=== PATIENT | female | born 1985 | race Caucasian/White ===

== ENCOUNTER 2017-04-25 17:41 | Emergency (ER) | payer MEDICAID, OTHER ==
[~2017-04-25] VITALS: Ht 162.6 cm; Wt 68.3 kg
[~2017-04-25 17:41] MED LIST: DIAZ10TA PO; DIVA500T4 PO; [UNRECOGNIZED DRUG - OTHER] PO; [UNRECOGNIZED DRUG - OTHER] PO
[2017-04-25] MEDS ORDERED: LEVE500T9 PO (18:39)
[2017-04-25] MEDS ORDERED: PREN-58 PO (18:39)
[2017-04-25] MEDS ORDERED: FOLI1TAB16 PO (18:39)
[2017-04-25] MEDS ORDERED: IV NORMAL SALINE 500 ML IV ONE (19:15)
--- NOTE | 2017-04-25 19:16 | NUR ---
Call placed to Dr. Shore (TORCH OPERATOR), message left for return call.
[2017-04-25 19:29] LABS: BASOPHILS % (AUTO) 0.3 % (0.0-2.0); EOSINOPHILS % (AUTO) 0.4 % (0.0-7.0); HEMOGLOBIN 14.6 g/dL (10.9-14.3); LYMPHOCYTES # (AUTO) 1.7 K/uL (20.0-40.0); MEAN CORPUSCULAR HEMOGLOBIN 31.8 uug (24.7-32.8); MEAN CORPUSCULAR HGB CONC 35 g/dL (32.3-35.6); MEAN CORPUSCULAR VOLUME 91.7 fL (75.5-95.3); MONOCYTES # (AUTO) 0.4 K/uL (2.0-10.0); MONOCYTES % (AUTO) 6.3 % (0.0-11.0); NEUTROPHILS # (AUTO) 4.6 K/uL (1.8-8.9); PLATELET COUNT (AUTO) 197 K/uL (179-408); RED BLOOD CELL COUNT(AUTO) 4.58 MIL/uL (3.63-4.92); WHITE BLOOD COUNT (AUTO) 6.7 K/uL (3.8-11.8)
[2017-04-25 19:41] LABS: CREATININE 0.6 mg/dL (0.6-1.3); POTASSIUM 3.9 mmol/L (3.5-5.1)
--- NOTE | 2017-04-25 19:55 | NUR ---
Radiology at bedside for US.
[2017-04-25 19:56] LABS: BILIRUBIN,TOTAL 0.9 mg/dL (0.2-1.0); TOTAL PROTEIN, SERUM 7.8 g/dL (6.4-8.2)
--- NOTE | 2017-04-25 20:12 | NUR ---
2nd call placed to Dr. Shore (SHEET ROCK INSTALLATION HELPER) who is speaking with JOSE.
--- NOTE | 2017-04-25 20:27 | NUR ---
Per ERMD, patient instructed to take one dose of P.O.M. (KEPPRA).
[2017-04-25 22:59] LABS: *BILIRUBIN,URIN NEGATIVE (NEGATIVE); *BLOOD, URINE NEGATIVE (NEGATIVE); *CLARITY,URINE SLIGHTLY CLOUDY (CLEAR); *COLOR,URINE YELLOW (YELLOW); *KETONES,URINE 4+ (NEGATIVE); *PROTEIN,URINE NEGATIVE (NEGATIVE); *UROBILINOGEN,URINE 0.2 E.U./dl (NORMAL); LEUKOCYTE ESTERASE ,URINE NEGATIVE (NEGATIVE); NITRITE, URINE NEGATIVE (NEGATIVE); PH,URINE 6.5 (5.0-8.0); UGLUCOSE NEGATIVE (NEGATIVE)
[2017-04-25 23:20] LABS: BACTERIA,URINE MODERATE /HPF (NONE SEEN); RBC,URINE 0-3 /HPF (0-3); SQUAMOUS EPITHELIAL CELL,UR MODERATE /HPF (NONE SEEN); WBC,URINE 0-3 /HPF (0-3)
[2017-04-25] MEDS ORDERED: CIPROFLOXACIN HCL 250 MG TABLET PO ONE (23:55)
--- NOTE | 2017-04-26 00:25 | NUR ---
Patient discharged to home in stable conditon. Written and verbal after care instructions given. Patient verbalizes understanding of instructions.
[2017-04-26 00:27] VITALS: BP 115/62
== END 2017-04-26 00:28 | disposition home or self-care (01) ==
LOC: ER 17:42
DX: O44.02 Complete placenta previa NOS or without hemorrhage, second trimester (principal); O99.352 Diseases of the nervous system complicating pregnancy, second trimester; G40.909 Epilepsy, unspecified, not intractable, without status epilepticus; Z3A.16 16 weeks gestation of pregnancy; Z79.899 Other long term (current) drug therapy
CPT/HCPCS: 36415; 70030-TC; 83690; 85025; A4663

== ENCOUNTER 2017-05-08 13:53 | Emergency (ER) | payer OTHER ==
[~2017-05-08] VITALS: Ht 172.7 cm; Wt 74.8 kg
[~2017-05-08 13:53] MED LIST changes: -DIAZ10TA PO; -DIVA500T4 PO; +FOLI1TAB16 PO; +LEVE500T9 PO; +PREN-58 PO; -[UNRECOGNIZED DRUG - OTHER] PO; -[UNRECOGNIZED DRUG - OTHER] PO
[2017-05-08] MEDS ORDERED: IV NORMAL SALINE 1000 ML BAG IV ONE ×2 (15:00→19:15)
--- NOTE | 2017-05-08 15:04 | NUR ---
PT IS IN BED #1B. DR JESUS EVALUATED THE PT.
[2017-05-08 15:22] LABS: BASOPHILS % (AUTO) 0.4 % (0.0-2.0); EOSINOPHILS % (AUTO) 0.5 % (0.0-7.0); HEMATOCRIT 41.3 % (31.2-41.9); HEMOGLOBIN 14.4 g/dL (10.9-14.3); LYMPHOCYTES # (AUTO) 2.2 K/uL (20.0-40.0); MEAN CORPUSCULAR HEMOGLOBIN 31.7 uug (24.7-32.8); MEAN CORPUSCULAR HGB CONC 35 g/dL (32.3-35.6); MONOCYTES # (AUTO) 0.5 K/uL (2.0-10.0); MONOCYTES % (AUTO) 7.8 % (0.0-11.0); NEUTROPHILS # (AUTO) 3.7 K/uL (1.8-8.9); NEUTROPHILS % (AUTO) 57.3 % (38.5-71.5); PLATELET COUNT (AUTO) 208 K/uL (179-408); RED BLOOD CELL COUNT(AUTO) 4.54 MIL/uL (3.63-4.92); WHITE BLOOD COUNT (AUTO) 6.4 K/uL (3.8-11.8)
[2017-05-08 15:29] LABS: CARBON DIOXIDE 20 mmol/L (21-32); CHLORIDE 102 mmol/L (98-107); CREATININE 0.5 mg/dL (0.6-1.3); GLUCOSE 78 mg/dL (74-106); POTASSIUM 3.8 mmol/L (3.5-5.1); UREA NITROGEN, BLOOD 6 mg/dL (7-18)
[2017-05-08 15:35] LABS: ALANINE AMINOTRANSFERASE 20 U/L (14-59); ALKALINE PHOSPHATASE 49 U/L (50-136); ASPARTATE AMINOTRANSFERASE 12 U/L (15-37); BILIRUBIN,DIRECT 0.1 mg/dL (0.0-0.2); BILIRUBIN,TOTAL 0.6 mg/dL (0.2-1.0); TOTAL PROTEIN, SERUM 7.5 g/dL (6.4-8.2)
--- NOTE | 2017-05-08 18:52 | NUR ---
[facility] CALLED , DR BORGES SPOKE TO [facility] COORDINATOR ROSITA ABOUT PT'S TRANSFER.
[2017-05-08] MEDS ORDERED: LEVETIRACETAM IV 500 MG in IV DEXTROSE 5% 100 ML IV ONE (19:15)
[2017-05-08] MEDS ORDERED: ONDANSETRON 4 MG/2 ML VIAL IV ONE (19:15)
[2017-05-08] MEDS ORDERED: ONDANSETRON 4 MG/2 ML VIAL ONE (19:52)
[2017-05-08] MEDS ORDERED: LEVETIRACETAM 500 MG/5 ML VIAL IV ONE (19:53)
[2017-05-08 20:06] LABS: *BILIRUBIN,URIN NEGATIVE (NEGATIVE); *BLOOD, URINE NEGATIVE (NEGATIVE); *CLARITY,URINE SLIGHTLY CLOUDY (CLEAR); *COLOR,URINE YELLOW (YELLOW); *KETONES,URINE 3+ (NEGATIVE); *PROTEIN,URINE NEGATIVE (NEGATIVE); *UROBILINOGEN,URINE 0.2 E.U./dl (NORMAL); LEUKOCYTE ESTERASE ,URINE NEGATIVE (NEGATIVE); NITRITE, URINE NEGATIVE (NEGATIVE); PH,URINE 5.5 (5.0-8.0); UGLUCOSE NEGATIVE (NEGATIVE)
[2017-05-08 20:13] LABS: BACTERIA,URINE FEW /HPF (NONE SEEN); RBC,URINE 0-3 /HPF (0-3); SQUAMOUS EPITHELIAL CELL,UR FEW /HPF (NONE SEEN)
--- NOTE | 2017-05-08 21:02 | NUR ---
Patient discharged to home in stable conditon. Written and verbal after care instructions given. Patient verbalizes understanding of instructions. Patient ambulated out of ER with steady gait, no acute signs of distress, VSS, all belongings taken.
[2017-05-08 21:03] VITALS: BP 128/56
== END 2017-05-08 21:03 | disposition home or self-care (01) ==
LOC: ER 13:53
DX: O21.0 Mild hyperemesis gravidarum (principal); O99.352 Diseases of the nervous system complicating pregnancy, second trimester; G40.909 Epilepsy, unspecified, not intractable, without status epilepticus; Z3A.18 18 weeks gestation of pregnancy; Z79.899 Other long term (current) drug therapy
CPT/HCPCS: 36415; 70030-TC; 76856; 83605; 85025; 85730; 87040; 87086; 93005; A4663; J1953; J2405; J7030; J7060

== ENCOUNTER 2017-05-29 19:41 | Emergency (ER) | payer OTHER ==
[~2017-05-29] VITALS: Ht 167.6 cm; Wt 69.4 kg
--- NOTE | 2017-05-29 19:50 | NUR ---
pt walked into ER with . pt aox4, comes in w/ c/o nausea and vomiting x1 day. pt states she is 5m . pt in no acute distress, no emesis at the moment. pt able to speak in clear and complete sentences. awaiting ER MD orders.
[2017-05-29] MEDS ORDERED: IV NORMAL SALINE 1000 ML BAG IV ONE (21:30)
[2017-05-29] MEDS ORDERED: ONDANSETRON 4 MG/2 ML VIAL IV ONE (21:30)
[2017-05-29 21:53] LABS: BASOPHILS % (AUTO) 0.3 % (0.0-2.0); EOSINOPHILS % (AUTO) 0.2 % (0.0-7.0); HEMATOCRIT 37.9 % (31.2-41.9); HEMOGLOBIN 13.3 g/dL (10.9-14.3); LYMPHOCYTES % (AUTO) 25.1 % (20.5-51.5); MEAN CORPUSCULAR HEMOGLOBIN 32.1 uug (24.7-32.8); MEAN CORPUSCULAR HGB CONC 35 g/dL (32.3-35.6); MEAN CORPUSCULAR VOLUME 91.6 fL (75.5-95.3); MONOCYTES # (AUTO) 0.5 K/uL (2.0-10.0); MONOCYTES % (AUTO) 6.1 % (0.0-11.0); NEUTROPHILS # (AUTO) 5.5 K/uL (1.8-8.9); NEUTROPHILS % (AUTO) 68.3 % (38.5-71.5); PLATELET COUNT (AUTO) 204 K/uL (179-408); RED BLOOD CELL COUNT(AUTO) 4.13 MIL/uL (3.63-4.92)
--- NOTE | 2017-05-29 22:00 | NUR ---
Patient is resting comfortably in bed with eyes closed at bedside
[2017-05-29 22:08] LABS: CARBON DIOXIDE 23 mmol/L (21-32); CHLORIDE 104 mmol/L (98-107); CREATININE 0.5 mg/dL (0.6-1.3); GLUCOSE 80 mg/dL (74-106); POTASSIUM 3.7 mmol/L (3.5-5.1); UREA NITROGEN, BLOOD 7 mg/dL (7-18)
[2017-05-29 22:14] LABS: ALANINE AMINOTRANSFERASE 21 U/L (14-59); ALKALINE PHOSPHATASE 52 U/L (50-136); ASPARTATE AMINOTRANSFERASE 13 U/L (15-37); BILIRUBIN,DIRECT 0.1 mg/dL (0.0-0.2); BILIRUBIN,TOTAL 0.7 mg/dL (0.2-1.0); LIPASE 163 U/L (73-393); TOTAL PROTEIN, SERUM 7.1 g/dL (6.4-8.2)
[2017-05-29] MEDS ORDERED: ONDANSETRON 4 MG/2 ML VIAL ONE (22:33)
[2017-05-30 00:31] LABS: *BILIRUBIN,URIN NEGATIVE (NEGATIVE); *BLOOD, URINE NEGATIVE (NEGATIVE); *CLARITY,URINE CLEAR (CLEAR); *COLOR,URINE YELLOW (YELLOW); *KETONES,URINE 3+ (NEGATIVE); *PROTEIN,URINE NEGATIVE (NEGATIVE); *UROBILINOGEN,URINE 0.2 E.U./dl (NORMAL); LEUKOCYTE ESTERASE ,URINE NEGATIVE (NEGATIVE); NITRITE, URINE NEGATIVE (NEGATIVE); UGLUCOSE NEGATIVE (NEGATIVE)
[2017-05-30 00:40] LABS: BACTERIA,URINE MANY /HPF (NONE SEEN)
[2017-05-30 00:41] LABS: SQUAMOUS EPITHELIAL CELL,UR MODERATE /HPF (NONE SEEN)
--- NOTE | 2017-05-30 01:37 | NUR ---
Patient discharged to home in stable conditon. Written and verbal after care instructions given. Patient verbalizes understanding of instructions. peripherial IV dc with catheter intact .
== END 2017-05-30 01:39 | disposition home or self-care (01) ==
LOC: ER 19:46
DX: O21.0 Mild hyperemesis gravidarum (principal); Z79.899 Other long term (current) drug therapy; Z3A.00 Weeks of gestation of pregnancy not specified
CPT/HCPCS: 36415; 80048; 80076; 81001; 83690; 85025; 96361; 96374; 99284; A4663; J2405; J7030 ×2

== ENCOUNTER 2017-07-03 20:48 | Emergency (ER) | payer OTHER ==
[~2017-07-03] VITALS: Ht 165.1 cm; Wt 75.7 kg
--- NOTE | 2017-07-03 21:20 | NUR ---
Dr. Randall at bedside for MSE.
--- NOTE | 2017-07-03 21:20 | NUR ---
Danish speaking Psychometrician at bedside.
--- NOTE | 2017-07-03 21:30 | NUR ---
Ultrasound at bedside.
[2017-07-03 22:34] LABS: *BILIRUBIN,URIN NEGATIVE (NEGATIVE); *BLOOD, URINE NEGATIVE (NEGATIVE); *CLARITY,URINE CLEAR (CLEAR); *COLOR,URINE YELLOW (YELLOW); *KETONES,URINE NEGATIVE (NEGATIVE); *PROTEIN,URINE NEGATIVE (NEGATIVE); *UROBILINOGEN,URINE 0.2 E.U./dl (NORMAL); LEUKOCYTE ESTERASE ,URINE NEGATIVE (NEGATIVE); NITRITE, URINE NEGATIVE (NEGATIVE); UGLUCOSE NEGATIVE (NEGATIVE)
[2017-07-03 22:37] LABS: BASOPHILS % (AUTO) 0.3 % (0.0-2.0); EOSINOPHILS # (AUTO) 0.1 K/uL (0.0-0.7); HEMATOCRIT 37.2 % (31.2-41.9); HEMOGLOBIN 12.9 g/dL (10.9-14.3); LYMPHOCYTES # (AUTO) 2.1 K/uL (20.0-40.0); LYMPHOCYTES % (AUTO) 25.6 % (20.5-51.5); MEAN CORPUSCULAR HEMOGLOBIN 32.3 uug (24.7-32.8); MEAN CORPUSCULAR HGB CONC 35 g/dL (32.3-35.6); MEAN CORPUSCULAR VOLUME 93.3 fL (75.5-95.3); MONOCYTES # (AUTO) 0.7 K/uL (2.0-10.0); MONOCYTES % (AUTO) 7.8 % (0.0-11.0); NEUTROPHILS # (AUTO) 5.4 K/uL (1.8-8.9); NEUTROPHILS % (AUTO) 65.3 % (38.5-71.5); PLATELET COUNT (AUTO) 231 K/uL (179-408); RED BLOOD CELL COUNT(AUTO) 3.98 MIL/uL (3.63-4.92); WHITE BLOOD COUNT (AUTO) 8.3 K/uL (3.8-11.8)
[2017-07-03 22:48] LABS: CARBON DIOXIDE 24 mmol/L (21-32); CHLORIDE 103 mmol/L (98-107); CREATININE 0.5 mg/dL (0.6-1.3); GLUCOSE 82 mg/dL (74-106); POTASSIUM 3.9 mmol/L (3.5-5.1); UREA NITROGEN, BLOOD 7 mg/dL (7-18)
[2017-07-03 22:51] LABS: RBC,URINE NONE SEEN /HPF (0-3); WBC,URINE 0-3 /HPF (0-3)
[2017-07-03 22:52] LABS: BACTERIA,URINE MANY /HPF (NONE SEEN); SQUAMOUS EPITHELIAL CELL,UR FEW /HPF (NONE SEEN)
[2017-07-03 22:54] LABS: ALANINE AMINOTRANSFERASE 33 U/L (14-59); ALKALINE PHOSPHATASE 57 U/L (50-136); ASPARTATE AMINOTRANSFERASE 25 U/L (15-37); BILIRUBIN,DIRECT 0.1 mg/dL (0.0-0.2); BILIRUBIN,TOTAL 0.4 mg/dL (0.2-1.0); TOTAL PROTEIN, SERUM 7.1 g/dL (6.4-8.2)
[2017-07-04 01:29] VITALS: BP 113/65
== END 2017-07-04 00:15 | disposition home or self-care (01) ==
LOC: ER 20:50
DX: O26.893 Other specified pregnancy related conditions, third trimester (principal); R10.12 Left upper quadrant pain; R10.32 Left lower quadrant pain; Z79.899 Other long term (current) drug therapy; Z3A.26 26 weeks gestation of pregnancy
CPT/HCPCS: 36415; 70030-TC; 85025; 85730; 87086; A4663

== ENCOUNTER 2018-01-12 13:15 | Inpatient (IN) | payer OTHER ==
[~2018-01-12] VITALS: Ht 165.1 cm; Wt 74.8 kg
[~2018-01-12 13:15] MED LIST changes: -PREN-58 PO
--- NOTE | 2018-01-12 13:15 | NUR ---
BIB [facility] WITH C/O SEIZURE. PER EMS PT WAS FOUND AT A BUS STOP, BLOOD SUGER=40 ON SCENE, PT WAS GIVEN GLUCOGEL PO IN ROUTE TO ER.
--- NOTE | 2018-01-12 13:19 | NUR ---
kc=[id number]
[2018-01-12] MEDS ORDERED: DEXTROSE 50% 50 ML DISP.SYRIN IV ONE (13:30)
[2018-01-12] MEDS ORDERED: LORAZEPAM 2 MG/1 ML VIAL IV ONE (13:30)
[2018-01-12] MEDS ORDERED: IV NORMAL SALINE 1000 ML BAG IV ONE (13:30)
[2018-01-12] MEDS ORDERED: LORAZEPAM 2 MG/1 ML VIAL ONE (13:31)
[2018-01-12] MEDS ORDERED: DEXTROSE 50% 50 ML DISP.SYRIN ONE (13:34)
[2018-01-12 14:00] LABS: BASOPHILS % (AUTO) 0.4 % (0.0-2.0); EOSINOPHILS # (AUTO) 0.1 K/uL (0.0-0.7); EOSINOPHILS % (AUTO) 1.2 % (0.0-7.0); HEMATOCRIT 39.3 % (31.2-41.9); HEMOGLOBIN 13.5 g/dL (10.9-14.3); LYMPHOCYTES # (AUTO) 2.1 K/uL (20.0-40.0); LYMPHOCYTES % (AUTO) 47.6 % (20.5-51.5); MEAN CORPUSCULAR HEMOGLOBIN 32.1 uug (24.7-32.8); MEAN CORPUSCULAR HGB CONC 34 g/dL (32.3-35.6); MEAN CORPUSCULAR VOLUME 93.4 fL (75.5-95.3); MONOCYTES # (AUTO) 0.3 K/uL (2.0-10.0); MONOCYTES % (AUTO) 7.1 % (0.0-11.0); NEUTROPHILS # (AUTO) 1.9 K/uL (1.8-8.9); NEUTROPHILS % (AUTO) 43.7 % (38.5-71.5); PLATELET COUNT (AUTO) 189 K/uL (179-408); WHITE BLOOD COUNT (AUTO) 4.4 K/uL (3.8-11.8)
[2018-01-12 14:02] LABS: CREATININE 0.6 mg/dL (0.6-1.3); POTASSIUM 3.9 mmol/L (3.5-5.1)
[2018-01-12 14:09] LABS: BILIRUBIN,DIRECT 0.1 mg/dL (0.0-0.2); BILIRUBIN,TOTAL 0.3 mg/dL (0.2-1.0); TOTAL PROTEIN, SERUM 7.4 g/dL (6.4-8.2)
[2018-01-12 14:16] LABS: THYROID STIMULATING HORMONE 0.955 mIU/mL (0.358-3.740)
[2018-01-12 15:05] LABS: *BILIRUBIN,URIN NEGATIVE (NEGATIVE); *BLOOD, URINE 3+ (NEGATIVE); *CLARITY,URINE CLOUDY (CLEAR); *KETONES,URINE NEGATIVE (NEGATIVE); *PROTEIN,URINE NEGATIVE (NEGATIVE); *UROBILINOGEN,URINE 0.2 E.U./dl (NORMAL); LEUKOCYTE ESTERASE ,URINE NEGATIVE (NEGATIVE); NITRITE, URINE NEGATIVE (NEGATIVE); PH,URINE 6.5 (5.0-8.0); UGLUCOSE 2+ (NEGATIVE)
[2018-01-12 15:08] LABS: *COLOR,URINE Brown (YELLOW)
[2018-01-12 15:13] LABS: *URINE HCG, QUAL NEGATIVE (NEGATIVE); RBC,URINE TNTC /HPF (0-3); SQUAMOUS EPITHELIAL CELL,UR FEW /HPF (NONE SEEN)
--- NOTE | 2018-01-12 15:34 | NUR ---
pt refuese to eat at this point. pt took only apple juice.
--- NOTE | 2018-01-12 17:07 | NUR ---
pt pt had multiple seizure appering eye movements lasting more than few minutes, but stopped when pt talked too. pt was able to to control the movement of arms not hit her face when ot the pt arm was raised over the head while md was examinig the pt at the time pt haveing her eye movents.
--- NOTE | 2018-01-12 17:50 | NUR ---
pt transfered to floor in stable condition.
--- NOTE | 2018-01-12 18:30 | NUR ---
32 YEAR OLD FEMALE ADMITTED FROM ER FOR SEIZURE,CALL LIGHT WITH IN REACH MD CALLED FOR ADMISSION ORDERS
[2018-01-12 18:37] VITALS: BP 117/65
[2018-01-12] MEDS ORDERED: ONDANSETRON 4 MG/2 ML VIAL IV PRN (19:00)
[2018-01-12] MEDS ORDERED: MAGNESIUM HYDROXIDE 30 ML LIQUID UDC PO PRN (19:00)
[2018-01-12] MEDS ORDERED: HYDROCODONE/APAP 5-325MG TABLET PO PRN (19:00)
[2018-01-12] MEDS ORDERED: Z GUARD REMEDY PASTE 57 GM TUBE TOP PRN (19:00)
[2018-01-12] MEDS ORDERED: ZOLPIDEM 5 MG TABLET PO PRN (19:00)
[2018-01-12] MEDS ORDERED: LEVETIRACETAM 500 MG TABLET PO SCH (19:00)
[2018-01-12] MEDS ORDERED: ACETAMINOPHEN 325 MG TABLET PO PRN (19:00)
--- NOTE | 2018-01-12 19:20 | NUR ---
Received patient lying in bed. Asleep, arouse to verbal and tactile stimuli. Non-verbal, blinking eyes off and on. Unable to make eye contact. In no acute distress. VS WNL. O2 sat at 98% on RA. IV site on right forearm intact and patent. Seizure precaution observed. Safety measure initiated and call ball within reach. Addendum: 01/12/18 at [id number] by ARON COVINGTON RN Sinus lidia on tele at 52/min.
[2018-01-12] MEDS: FOLIC ACID 1 MG TABLET PO SCH (19:38)
[2018-01-12] MEDS: IV NS 1000 ML 1,000 ML IV PRN (19:39)
[2018-01-12 20:00] VITALS: BP 125/63
--- NOTE | 2018-01-12 20:12 | NUR ---
Telephone call to Dr. Oden, obtain order to check BS with mild sliding scale coverage. Per patient , pt is not taking any medication for diabetes.
[2018-01-12] MEDS ORDERED: INSULIN REGULAR, HUMAN 300 UNIT/3 ML VIAL SQ PRN ×2 (20:15→20:30)
[2018-01-12] MEDS ORDERED: DEXTROSE 50% 50 ML DISP.SYRIN IV PRN (20:30)
[2018-01-12] MEDS: BLOOD SUGAR DIAGNOSTIC 1 EACH STRIP VI SCH (20:56)
[2018-01-12] MEDS ORDERED: BLOOD SUGAR DIAGNOSTIC 1 EACH STRIP VI SCH (21:00)
[2018-01-13] VITALS: BP 116/61
[2018-01-13 04:00] VITALS: BP 108/55
--- NOTE | 2018-01-13 06:18 | NUR ---
Slept well last night. Still non-verbal, blinking eyes off and on at times when awake. In no acute distress. VS WNL. O2 sat at 97% on RA. Sinus lidia on tele at 52/min. IV site on right forearm intact and patent. IVF infusing. Seizure precaution observed. Needs assessed and attended to. Safety measure initiated and call ball within reach.
[2018-01-13 06:29] LABS: BASOPHILS % (AUTO) 0.3 % (0.0-2.0); EOSINOPHILS # (AUTO) 0.1 K/uL (0.0-0.7); EOSINOPHILS % (AUTO) 1.6 % (0.0-7.0); HEMATOCRIT 39.4 % (31.2-41.9); HEMOGLOBIN 13.7 g/dL (10.9-14.3); LYMPHOCYTES % (AUTO) 45.2 % (20.5-51.5); MEAN CORPUSCULAR HEMOGLOBIN 31.9 uug (24.7-32.8); MEAN CORPUSCULAR HGB CONC 35 g/dL (32.3-35.6); MEAN CORPUSCULAR VOLUME 91.9 fL (75.5-95.3); MONOCYTES # (AUTO) 0.4 K/uL (2.0-10.0); MONOCYTES % (AUTO) 8.7 % (0.0-11.0); NEUTROPHILS % (AUTO) 44.2 % (38.5-71.5); PLATELET COUNT (AUTO) 190 K/uL (179-408); RED BLOOD CELL COUNT(AUTO) 4.29 MIL/uL (3.63-4.92); WHITE BLOOD COUNT (AUTO) 4.5 K/uL (3.8-11.8)
[2018-01-13] MEDS: BLOOD SUGAR DIAGNOSTIC 1 EACH STRIP VI SCH ×4 (06:30→20:20)
[2018-01-13 06:58] LABS: CREATININE 0.6 mg/dL (0.6-1.3); MAGNESIUM 1.8 mg/dL (1.8-2.4); PHOSPHOROUS 3.7 mg/dL (2.5-4.9); POTASSIUM 3.8 mmol/L (3.5-5.1)
--- NOTE | 2018-01-13 07:30 | NUR ---
Received patient awake in bed, on room air, tolerated. With ongoing IV on right forearm, infusing well. Patient was endorsed nonverbal but noted this morning, patient follows simple commands and answers in short phrases in macedonian. Bed in low position, side rails up x 2, call light within reach. Ensured patient safety and comfort. Will continue to monitor.
[2018-01-13] MEDS: FOLIC ACID 1 MG TABLET PO SCH ×2 (09:00→09:51)
[2018-01-13] MEDS: LEVETIRACETAM 250 MG TABLET PO SCH ×4 (09:00→16:41)
--- NOTE | 2018-01-13 09:00 | NUR ---
Noted IV site at right arm infiltrated, removed IV catheter with intact tip and reinserted on left hand with IV 22g and continued IVF.
[2018-01-13] MEDS: IV NS 1000 ML 1,000 ML IV PRN (10:59)
[2018-01-13 11:28] VITALS: BP 114/61
[2018-01-13 15:11] VITALS: BP 112/55
[2018-01-13 15:15] LABS: *AMPHETAMINE, URINE NEGATIVE (NEGATIVE); *BARBITURATE, URINE NEGATIVE (NEGATIVE); *CANNABINOID, URINE NEGATIVE (NEGATIVE); *COCCAINE, URINE NEGATIVE (NEGATIVE); *OPIATE, URINE NEGATIVE (NEGATIVE); *PHENCYCLIDINE SCREEN,URINE NEGATIVE (NEGATIVE)
--- NOTE | 2018-01-13 16:27 | NUR ---
Noted per Dr. Maldonado's note, ativan IV to be given as needed for seizure > 5 minutes. Called and left message to Dr. Maldonado to verify dosage.
[2018-01-13] MEDS ORDERED: FOLIC ACID 1 MG TABLET PO SCH (16:59)
[2018-01-13] MEDS ORDERED: MULT-1119 PO (17:01)
[2018-01-13] MEDS ORDERED: DIVA250T4 PO (17:03)
--- NOTE | 2018-01-13 18:24 | NUR ---
Patient awake in bed, on room air, tolerated. With ongoing IV on left hand, infusing well. Seizure precautions observed, no episode noted this shift. Noted patient responds in short phrases in latvian and follows simple commands. Bed in low position, side rails up x 2, call light within reach. Ensured patient safety and comfort.
[2018-01-13 20:27] VITALS: BP 115/50
[2018-01-14 00:46] VITALS: BP 120/61
[2018-01-14 04:00] VITALS: BP 107/58
--- NOTE | 2018-01-14 06:02 | NUR ---
Patient speaks Yi only. was able to translate while he was here. Patient able to follow verbal commands. Commnicated in Yi of her needs. Able to use call light for assistance. BRP with assist and had diarrhea. No seizure episodes. Slept through the night except to use bathroom. Denies pain or SOB.
[2018-01-14] MEDS: BLOOD SUGAR DIAGNOSTIC 1 EACH STRIP VI SCH (07:30)
--- NOTE | 2018-01-14 07:30 | NUR ---
Noted warehouse shift supervisor nurseRobyn checked patient blood sugar = 88mg/dl.
--- NOTE | 2018-01-14 07:32 | NUR ---
Patient awake in bed, on room air, tolerated. With ongoing IV on left hand, infusing well. Will observe seizure precautions. Noted patient more verbal this morning, speaks Tamazight only. Per community educator nurse, patient had 3 episodes of diarrhea last night, will monitor and collect sample as needed. Bed in low position, side rails up x 2, call light within reach. Will continue to monitor.
[2018-01-14] MEDS: LEVETIRACETAM 250 MG TABLET PO SCH (08:56)
[2018-01-14] MEDS ORDERED: DIVALPROEX 250 MG TABLET.DR PO SCH (09:00)
--- NOTE | 2018-01-14 10:45 | NUR ---
Patient given discharge instructions and sent home ambulatory with in stable condition. said he will schedule the appointment with the patient's PCP.
== END 2018-01-14 10:45 | disposition home or self-care (01) | DRG 53 ==
LOC: ER 13:15 → TELE 17:38
PROVIDERS: ADMIT Internal Medicine; ATTEND Internal Medicine
DX: G40.409 Other generalized epilepsy and epileptic syndromes, not intractable, without status epilepticus (principal); E16.2 Hypoglycemia, unspecified; J98.11 Atelectasis; Z79.899 Other long term (current) drug therapy; F32.9 Major depressive disorder, single episode, unspecified
CPT/HCPCS: 36415; 70450; 71045; 72125; 80307; 83605; 83735; 84100; 84443; 84703; 85025; 85730; 87040; 87086; 93005; A4663; G0378; J1815; J2060; J3490; J7030

== ENCOUNTER 2018-04-11 17:12 | Emergency (ER) | payer OTHER ==
[~2018-04-11] VITALS: Ht 167.6 cm; Wt 68.0 kg
[~2018-04-11 17:12] MED LIST changes: +DIVA250T4 PO; +MULT-1119 PO
[2018-04-11] MEDS ORDERED: DEXAMETHASONE SOD PHOSPHATE 10 MG INJ ONE (18:28)
[2018-04-11] MEDS ORDERED: CEFTRIAXONE 1 G VIAL ONE (18:28)
[2018-04-11] MEDS ORDERED: CEFTRIAXONE 1 G VIAL IM ONE (18:30)
[2018-04-11] MEDS ORDERED: DEXAMETHASONE SOD PHOSPHATE 4 MG INJ IM ONE (18:30)
[2018-04-11] MEDS ORDERED: LIDOCAINE HCL 1% 20 ML VIAL ONE (18:30)
--- NOTE | 2018-04-11 18:44 | NUR ---
PATIENT WAS SEEN BY MD. MEDS GIVEN ORDERED. PATIENT STAYED ABOUT 20 MINUTES AFTER TO ASSESS FRO POTENTIAL ADVERSE REACTION.. WHICH WAS NONE. DC ,Rx and follow up instructions given and explained to patient AND MALE FLOOR FINISHER who states THEY understands all instructions.
== END 2018-04-11 18:53 | disposition home or self-care (01) ==
LOC: ER 17:15
DX: J03.90 Acute tonsillitis, unspecified (principal); Z79.899 Other long term (current) drug therapy
CPT/HCPCS: 96372 ×2; 99283; J0696; J1100; J3490; A4663

== ENCOUNTER 2021-07-31 20:02 | Emergency (ER) | payer OTHER ==
[~2021-07-31] VITALS: Ht 162.6 cm; Wt 78.0 kg
[~2021-07-31 20:02] MED LIST changes: -FOLI1TAB16 PO; +FOLI1TAB94 PO
--- NOTE | 2021-07-31 20:24 | NUR ---
Pt provided urine sample, sent to lab.
--- NOTE | 2021-07-31 20:25 | NUR ---
pt in room 5a c/o of nausea vomiting.
--- NOTE | 2021-07-31 20:26 | NUR ---
Dr. Brennan at bedside for MSE.
[2021-07-31 20:30] LABS: *BILIRUBIN,URIN NEGATIVE (NEGATIVE); *BLOOD, URINE 2+ (NEGATIVE); *CLARITY,URINE CLEAR (CLEAR); *COLOR,URINE YELLOW (YELLOW); *KETONES,URINE NEGATIVE (NEGATIVE); *UROBILINOGEN,URINE 0.2 E.U./dl (NORMAL); LEUKOCYTE ESTERASE ,URINE NEGATIVE (NEGATIVE); NITRITE, URINE NEGATIVE (NEGATIVE); PH,URINE 7.5 (5.0-8.0); UGLUCOSE NEGATIVE (NEGATIVE)
--- NOTE | 2021-07-31 20:39 | NUR ---
Ninoska RN at bedside for permanent mold supervisor for Dr. Brennan for female exam.
[2021-07-31] MEDS ORDERED: ONDANSETRON 4 MG/2 ML VIAL ONE (20:42)
[2021-07-31] MEDS ORDERED: PANTOPRAZOLE SODIUM 40 MG VIAL ONE (20:43)
[2021-07-31] MEDS ORDERED: IV LACTATED RINGERS SOLUTION 1,000 ML IV ONE (20:45)
[2021-07-31] MEDS ORDERED: ONDANSETRON 4 MG/2 ML VIAL IV ONE (20:45)
[2021-07-31] MEDS ORDERED: OXCARBAZEPINE 150 MG TABLET PO ONE (20:45)
[2021-07-31] MEDS ORDERED: PANTOPRAZOLE SODIUM IV 80 MG in IV DEXTROSE 5% 100 ML IV ONE (20:45)
[2021-07-31 21:08] LABS: HEMATOCRIT 40.6 % (31.2-41.9); MEAN CORPUSCULAR HEMOGLOBIN 32.9 uug (24.7-32.8); MEAN CORPUSCULAR VOLUME 94.1 fL (75.5-95.3); PLATELET COUNT (AUTO) 256 K/uL (179-408)
[2021-07-31 21:20] LABS: BILIRUBIN,DIRECT 0.1 mg/dL (0.0-0.2); BILIRUBIN,TOTAL 0.4 mg/dL (0.2-1.0); CREATININE 0.6 mg/dL (0.6-1.3); POTASSIUM 3.6 mmol/L (3.5-5.1); TOTAL PROTEIN, SERUM 7.6 g/dL (6.4-8.2)
[2021-07-31] MEDS ORDERED: OXCARBAZEPINE 150 MG TABLET ONE (21:21)
[2021-07-31 21:31] LABS: *OCCULT BLOOD STOOL NEGATIVE (NEGATIVE)
[2021-07-31] MEDS ORDERED: ONDA4TAB5 PO (21:40)
[2021-07-31 21:42] LABS: *URINE HCG, QUAL NEGATIVE (NEGATIVE)
--- NOTE | 2021-07-31 21:53 | NUR ---
pt is d/c home but she wants to wait until her LR ivf is finished. all d/c paperwork has been reviewed.
--- NOTE | 2021-07-31 22:17 | NUR ---
Patient discharged to home in stable condition. Written and verbal after care instructions given. Patient verbalizes understanding of instructions. Stressed follow up or return to ER for worsening s/s.
[2021-07-31 22:18] VITALS: BP 131/45
[2021-07-31 22:39] LABS: WBC,URINE 0-3 /HPF (0-3)
[2021-07-31 22:40] LABS: BACTERIA,URINE FEW /HPF (NONE SEEN); SQUAMOUS EPITHELIAL CELL,UR FEW /HPF (NONE SEEN)
== END 2021-07-31 22:18 | disposition home or self-care (01) ==
LOC: ER 20:05
DX: R11.2 Nausea with vomiting, unspecified (principal); R31.29 Other microscopic hematuria; G40.909 Epilepsy, unspecified, not intractable, without status epilepticus
CPT/HCPCS: 36415; 71045; 80048; 80076; 81001; 82270; 83690; 84703; 85025; 85730; 86850; 86900; 86901; 96361; 96374; 99284; C9113 ×2; J2405; J7120; A4663

== ENCOUNTER 2021-08-02 07:06 | Emergency (ER) | payer OTHER ==
[~2021-08-02] VITALS: Ht 162.6 cm; Wt 77.1 kg
[~2021-08-02 07:06] MED LIST changes: +ONDA4TAB5 PO
[2021-08-02] MEDS ORDERED: levETIRAcetam IV 2,000 MG in IV DEXTROSE 5% 100 ML IV ONE (07:45)
[2021-08-02] MEDS ORDERED: IV NORMAL SALINE 1000 ML BAG IV ONE (07:45)
[2021-08-02 08:11] LABS: MEAN CORPUSCULAR HEMOGLOBIN 32.7 uug (24.7-32.8); MEAN CORPUSCULAR VOLUME 94.5 fL (75.5-95.3); PLATELET COUNT (AUTO) 275 K/uL (179-408)
--- NOTE | 2021-08-02 08:13 | NUR ---
PT SEEN AND EVALUATED BY DR SAMUELS. TO RADIOLOGY FOR CT SCAN.
[2021-08-02 08:17] LABS: CARBON DIOXIDE 27 mmol/L (21-32); CHLORIDE 102 mmol/L (98-107); CREATININE 0.8 mg/dL (0.6-1.3); GLUCOSE 93 mg/dL (74-106); POTASSIUM 3.8 mmol/L (3.5-5.1); UREA NITROGEN, BLOOD 9 mg/dL (7-18)
[2021-08-02 08:25] LABS: ACETAMINOPHEN < 2.0 ug/mL (10-30); ALANINE AMINOTRANSFERASE 32 U/L (14-59); ALKALINE PHOSPHATASE 69 U/L (50-136); ASPARTATE AMINOTRANSFERASE 12 U/L (15-37); BILIRUBIN,DIRECT 0.2 mg/dL (0.0-0.2); BILIRUBIN,TOTAL 0.6 mg/dL (0.2-1.0); ETHANOL < 3 MG/DL (0-0); TOTAL PROTEIN, SERUM 8.5 g/dL (6.4-8.2)
--- NOTE | 2021-08-02 09:30 | NUR ---
Completed Keppra infusion.
[2021-08-02 10:15] LABS: *BILIRUBIN,URIN NEGATIVE (NEGATIVE); *BLOOD, URINE 2+ (NEGATIVE); *CLARITY,URINE CLEAR (CLEAR); *COLOR,URINE YELLOW (YELLOW); *KETONES,URINE 2+ (NEGATIVE); *UROBILINOGEN,URINE 0.2 E.U./dl (NORMAL); LEUKOCYTE ESTERASE ,URINE NEGATIVE (NEGATIVE); NITRITE, URINE NEGATIVE (NEGATIVE); UGLUCOSE NEGATIVE (NEGATIVE)
[2021-08-02 10:19] LABS: *URINE HCG, QUAL NEG (NEGATIVE)
[2021-08-02 10:31] LABS: *AMPHETAMINE, URINE NEGATIVE (NEGATIVE); *CANNABINOID, URINE NEGATIVE (NEGATIVE); *COCCAINE, URINE NEGATIVE (NEGATIVE); *OPIATE, URINE NEGATIVE (NEGATIVE); *PHENCYCLIDINE SCREEN,URINE NEGATIVE (NEGATIVE)
[2021-08-02 12:07] LABS: BACTERIA,URINE FEW /HPF (NONE SEEN); SQUAMOUS EPITHELIAL CELL,UR MODERATE /HPF (NONE SEEN)
--- NOTE | 2021-08-02 12:45 | NUR ---
Just received room assignment at [facility] and receiving RN named Rosalva, will be calling report now.
--- NOTE | 2021-08-02 12:51 | NUR ---
Call placed to [facility] floor to give report to receiving JARET Luna. Placed on hold. Jeremy picked up
--- NOTE | 2021-08-02 13:04 | NUR ---
Thorough report called to [facility] receiving staffing recruiter Shawn using sbar method. All questions answered. Greenlight obtained. [facility] 45-50 min.
--- NOTE | 2021-08-02 14:05 | NUR ---
Report given to transfering ball machine operator, pt left ER via gurney.
== END 2021-08-02 14:08 | disposition short-term general hospital (02) ==
LOC: ER 07:06
DX: G40.909 Epilepsy, unspecified, not intractable, without status epilepticus (principal); R41.82 Altered mental status, unspecified; Z20.822 Contact with and (suspected) exposure to COVID-19; Z79.899 Other long term (current) drug therapy; R00.1 Bradycardia, unspecified
CPT/HCPCS: 36415; 70450; 71045; 80048; 80076; 80299; 80307; 80320; 81001; 82140; 84484; 84703; 85025; 85730; 87086; 87426; 93005; 96365; 99285; J1953; J7040; A4663; C1758; G0480